=== PATIENT | male | born 1965 | race Caucasian/White ===

== ENCOUNTER 2018-01-28 11:40 | Emergency (ER) | payer SELFPAY ==
[2018-01-28 13:48] VITALS: BP 133/77
--- NOTE | 2018-01-28 13:59 | UC ---
UC General HPI - HPI Summary HPI Summary: PT C/O 10 DAY HX COUGH, CHEST CONGESTION AND SHORT OF BREATH. SUBJECTIVE FEVER. NO HX COPD OR ASTHMA. NO CP. - History of Current Complaint Chief Complaint: UCGeneralIllness Stated Complaint: COUGH, CONGESTION Time Seen by Provider: 01/28/18 13:48 Hx Obtained From: Patient Onset/Duration: Gradual Onset Timing: Constant Pain Intensity: 5 Associated Signs & Symptoms: Positive: Cough, Fever - SUBJECTIVE, SOB, Wheezing. Negative: Chest Pain - Allergy/Home Medications Allergies/Adverse Reactions: Allergies Allergy/AdvReac Type Severity Reaction Status Date / Time No Known Allergies Allergy Verified 02/13/15 16:36 PMH/Surg Hx/FS Hx/Imm Hx Cardiovascular History: Hypertension GI/ History: Gastroesophageal Reflux - Surgical History Surgical History: Yes Surgery Procedure, Year, and Place: UVULECTOMY. TONSILECTOMY. L SHOULDER SX. PILONEAL CYST - Family History Known Family History: Positive: Hypertension - Social History Occupation: Employed Full-time Alcohol Use: Rare Substance Use Type: None Smoking Status (MU): Heavy Every Day Tobacco Smoker Type: Cigarettes Amount Used/How Often: 1 pack daily Length of Time of Smoking/Using Tobacco: 32 Years Have You Smoked in the Last Year: Yes Household Exposure Type: Cigarettes - Immunization History Most Recent Influenza Vaccination: Not the 2015/2016 Season Most Recent Tetanus Shot: 09/20/15 Review of Systems Constitutional: Fever, Chills Skin: Negative Eyes: Negative ENT: Negative Respiratory: Shortness Of Breath, Cough Cardiovascular: Negative Gastrointestinal: Negative Genitourinary: Negative Motor: Negative Neurovascular: Negative Musculoskeletal: Negative Neurological: Negative Psychological: Negative Is Patient Immunocompromised?: No All Other Systems Reviewed And Are Negative: Yes Physical Exam Triage Information Reviewed: Yes Appearance: Well-Appearing Vital Signs: Initial Vital Signs Temp 98.1 F 01/28/18 13:41 Pulse 75 01/28/18 13:41 Resp 19 01/28/18 13:41 BP 133/77 01/28/18 13:41 Pulse Ox 91 01/28/18 13:41 Vital Signs Reviewed: Yes Eyes: Positive: Conjunctiva Clear ENT: Positive: Pharynx normal, TMs normal. Negative: Nasal congestion, Nasal drainage Neck: Positive: Supple, Nontender, No Lymphadenopathy Respiratory: Positive: No respiratory distress, Decreased breath sounds, Wheezing - BILATERAL, Other: - COUGH IS BRONCHOSPASTIC AND CONGESTED. Cardiovascular: Positive: RRR, No Murmur Abdomen Description: Positive: Nontender, No Organomegaly, Soft Bowel Sounds: Positive: Present Musculoskeletal: Positive: ROM Intact, No Edema Neurological: Positive: Alert Psychological: Positive: Age Appropriate Behavior Skin Exam: Normal Course/Dx - Course Course Of Treatment: PT DECLINED CXR, ALBUTEROL NEBULIZER TX AND PO STEROIDS HERE CITING NO INSURANCE AND WANTS TO KEEP THE COST DOWN. PT ADVISED OF LOW OXYGEN LEVEL AND RISK OF FAILING TO MAKE RIGHT DIAGNOSIS RESULTING IN WORSENING , DISABILITY AND . PT STILL DECLINED TX HERE AND CXR. HE IS A&OX3 AND ABLE TO MAKE DECISIONS THUS I MUST RESPECT HIS WISH. IT IS NOT IN PT'S BEST INTEREST TO NOT TX THUS I WILL WRITE FOR AN ANTIBIOTIC, ALBUTEROL INHALER AND PREDNISONE. PT ENCOURAGED TO F/U PCP([facility]) SOON POSSIBLE AND GO TO ER FOR ANY WORSENING WELL. - Differential Dx - Multi-Symptom Provider Diagnoses: BRONCHOSPASM, DYSPNEA, HYPOXEMIA Discharge - Sign-Out/Discharge Documenting (check all that apply): Patient Departure All imaging exams completed and their final reports reviewed: No Studies - Discharge Plan Condition: Stable Disposition: AGAINST MEDICAL ADVICE Prescriptions: Albuterol HFA INHALER* [Ventolin HFA Inhaler*] 2 puff INH Q6H #1 mdi DOXYcycline CAP(*) [DOXYcycline 100MG CAP(*)] 100 mg PO BID 10 Days #20 cap predniSONE TAB* [Deltasone 20 MG TAB*] 40 mg PO DAILY 5 Days #10 tab Patient Education Materials: Dyspnea (ED), Bronchospasm (ED), Against Medical Advice (ED) Referrals: No Primary Care Phys,NOPCP [Primary Care Provider] - Additional Instructions: FOLLOW UP WITH THE [facility] SOON POSSIBLE. GO TO THE ER FOR ANY WORSENING. - Billing Disposition and Condition Condition: STABLE Disposition: Against Medical Advice
== END 2018-01-28 14:07 | disposition left against medical advice (07) ==
LOC: UCCORT 11:40
DX: J98.01 Acute bronchospasm (principal); F17.210 Nicotine dependence, cigarettes, uncomplicated
CPT/HCPCS: 99212; G0463